=== PATIENT | female | born 1990 | race Caucasian/White ===

== ENCOUNTER 2022-05-07 17:58 | Emergency (ER) | payer SELFPAY ==
[2022-05-07 20:13] LABS: BHCG - Serum Negative (NEGATIVE); Pregs Control Background? CLEAR/WHITE (CLR/WHITE); Pregs Control Bar Appear? YES (CONTROL BAR)
[2022-05-07] MEDS ORDERED: Ketorolac Tromethamine 30 MG/ML VIAL ONE (20:13)
[2022-05-07] MEDS ORDERED: Ondansetron PF 4 MG/2 ML Vial ONE (20:13)
[2022-05-07 20:20] LABS: ALT (SGPT) 13 U/L (8-55); AST (SGOT) 13 U/L (5-34); Albumin 5.4 g/dL (3.5-5.0); Alkaline Phosphatase 85 U/L (40-110); Anion Gap 26 mmol/L (10-20); BUN (Urea Nitrogen) 65 mg/dL (7.0-18.7); Bilirubin, Total 1.2 mg/dL (0.2-1.2); Calc. Creatinine Clearance 0 mL/min (70-130); Calcium 10.7 mg/dL (7.8-10.44); Carbon Dioxide 20 mmol/L (22-29); Chloride 91 mmol/L (98-107); Estimated GFR 51; Globulin 3.7 g/dL (2.4-3.5); Glucose 130 mg/dL (70-105); Lipase 12 U/L (8-78); Magnesium 2.5 mg/dL (1.6-2.6); Protein, Total 9.1 g/dL (6.0-8.3); Sodium 134 mmol/L (136-145)
[2022-05-07 20:52] LABS: Hemoglobin 13.5 g/dL (12.0-15.5); Mean Corpuscular HGB CONC 36.1 g/dL (32.0-36.0); Mean Corpuscular Hemoglobin 30.9 pg (27.0-33.0); Mean Corpuscular Volume 85.6 fl (81.6-98.3); Mean Platelet Volume 10.8 fl (7.4-10.4); Platelet Count 338 10x3/uL (150-450); RBC Distribution Width 12.8 % (11.5-14.5); Red Blood Cell (RBC) Count 4.37 10x6/uL (3.90-5.03); White Blood Cell (WBC) Count 12.1 10x3/uL (3.5-10.5)
[2022-05-07 20:56] LABS: MDiff Complete? YES
[2022-05-07 20:59] LABS: Band 4 % (5-11); Lymphocytes 9 % (21-51); Monocytes 16 % (0-10); Neutrophil 71 % (42-75)
[2022-05-07 21:00] LABS: Platelet Morphology Comment Appears Adequate; RBC Morphology Normal
[2022-05-07 22:43] LABS: Anion Gap 17 mmol/L (10-20); BUN (Urea Nitrogen) 54 mg/dL (7.0-18.7); Calc. Creatinine Clearance 0 mL/min (70-130); Carbon Dioxide 19 mmol/L (22-29); Chloride 104 mmol/L (98-107); Estimated GFR 84; Glucose 97 mg/dL (70-105); Potassium 3.1 mmol/L (3.5-5.1); Sodium 137 mmol/L (136-145)
== END 2022-05-07 23:19 | disposition home or self-care (01) ==
LOC: CSHERS 17:58
DX: E86.0 Dehydration (principal); R11.2 Nausea with vomiting, unspecified
CPT/HCPCS: 80053; 83690; 83735; 84703; 85025; 96361; 96374; 96375; J1885; J2405